=== PATIENT | male | born 1970 | race African-American/Black ===

== ENCOUNTER 2019-04-06 05:41 | Emergency (ER) | payer SELFPAY ==
[~2019-04-06] VITALS: Ht 177.8 cm; Wt 68.0 kg
[2019-04-06] VITALS (8 sets, daily range): BP systolic 112–132; BP diastolic 60–80
[2019-04-06] MEDS ORDERED: Haloperidol 5mg/ml Inj IM ONE (05:45)
--- NOTE | 2019-04-06 06:07 | Emergency Room Report ---
History of Present Illness General Chief Complaint: Alcohol Intoxication Source: Patient (Valentino Thorne MD) Present Illness HPI Patient is a 48 year-old male brought in by EMS after increased altered mental status. Patient reportedly had been shoplifting at a [employer]. Patient was noted to be behaving bizarrely. History is markedly limited by patient's mental status and poor historian. (Valentino Thorne MD) Allergies: Coded Allergies: UNABLE TO ASSESS (Unverified , 04/06/19) Patient History Past Medical History: see triage record Reviewed Nursing Documentation: PMH: Agreed; PSxH: Agreed (Valentino Thorne MD) Nursing Documentation-PMH Past Medical History: Deferred (Valentino Thorne MD) Review of Systems All Other Systems: negative except mentioned in HPI (Valentino Thorne MD) Physical Exam Vital Signs Date Time Temp Pulse Resp B/P (MAP) Pulse Ox O2 Delivery O2 Flow Rate FiO2 04/06/19 05:39 99.0 18 99 Room Air Sp02 EP Interpretation: reviewed, normal General Appearance: normal inspection, alert, Chronically Ill Head: normocephalic, atraumatic ENT: normal ENT inspection, hearing grossly normal, normal voice Neck: normal inspection, full range of motion, supple, no bony tend Respiratory: normal inspection, lungs clear, normal breath sounds, no respiratory distress, no retraction, no wheezing Cardiovascular #1: regular rate, rhythm, no edema Gastrointestinal: normal inspection, normal bowel sounds, non tender, soft, no guarding, no hernia Genitourinary: no CVA tenderness Musculoskeletal: normal inspection, back normal, normal range of motion Neurologic: normal inspection, alert, responsive, 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 Differential diagnosis include was not limited to substance abuse, psychosis, alcohol intoxication, meningitis among others. Because of complexity of patient's case laboratory tests were ordered. Patient's laboratory testing showed a urine drug screen positive for marijuana as well as amphetamine. Patient was given medications for initial sedation. He was noted to be somewhat somnolent subsequently. He was started on IV hydration. CPK was initially noted to be elevated. Patient was subsequently more calm. Patient was subsequently noted to have gradually improving mental status. Patient was endorsed to Dr. Millard pending repeat laboratory testing and further IV hydration. Labs Test 04/06/19 05:55 04/06/19 06:27 04/06/19 07:17 Urine Color Yellow Urine Appearance Clear Urine pH 5 (4.5-8.0) Urine Specific [place] 1.025 (1.005-1.035) Urine Protein 2+ (NEGATIVE) Urine Glucose (UA) Negative (NEGATIVE) Urine Ketones 2+ (NEGATIVE) Urine Blood Negative (NEGATIVE) Urine Nitrite Negative (NEGATIVE) Urine Bilirubin 1+ (NEGATIVE) Urine Ictotest Negative (NEGATIVE) Urine Urobilinogen 8 MG/DL (0.0-1.0) Urine Leukocyte Esterase 1+ (NEGATIVE) Urine RBC 0 /HPF (0 - 0) Urine WBC 2-4 /HPF (0 - 0) Urine Squamous Epithelial Cells Occasional /LPF Urine Bacteria Few /HPF (NONE) Urine Mucus Few /LPF (NONE/OCC) Sodium Level 135 MMOL/L (136-145) Potassium Level 4.1 MMOL/L (3.5-5.1) Chloride Level 101 MMOL/L (98-107) Carbon Dioxide Level 21 MMOL/L (21-32) Anion Gap 13 mmol/L (5-15) Blood Urea Nitrogen 16 mg/dL (7-18) Creatinine 0.9 MG/DL (0.55-1.30) Estimat Glomerular Filtration Rate > 60 mL/min (>60) Glucose Level 125 MG/DL (74-106) Calcium Level 8.9 MG/DL (8.5-10.1) Total Bilirubin 1.0 MG/DL (0.2-1.0) Aspartate Amino Transf (AST/SGOT) 121 U/L (15-37) Alanine Aminotransferase (ALT/SGPT) 167 U/L (12-78) Alkaline Phosphatase 69 U/L (46-116) Total Creatine Kinase 1639 U/L (26-308) Creatine Kinase MB 18.1 NG/ML (0.0-3.6) Creatine Kinase MB Relative Index 1.1 Troponin I 0.052 ng/mL (0.000-0.056) Total Protein 7.3 G/DL (6.4-8.2) Albumin 3.9 G/DL (3.4-5.0) Globulin 3.4 g/dL Albumin/Globulin Ratio 1.1 (1.0-2.7) Thyroid Stimulating Hormone (TSH) 0.425 uiU/mL (0.358-3.740) Salicylates Level 0.3 ug/mL (2.8-20) Urine Opiates Screen Negative (NEGATIVE) Acetaminophen Level < 2 MCG/ML (10-30) Urine Barbiturates Screen Negative (NEGATIVE) Phencyclidine (PCP) Screen Negative (NEGATIVE) Urine Amphetamines Screen Positive (NEGATIVE) Urine Benzodiazepines Screen Negative (NEGATIVE) Urine Cocaine Screen Negative (NEGATIVE) Urine Marijuana (THC) Screen Positive (NEGATIVE) Serum Alcohol < 3 mg/dL White Blood Count 7.1 K/UL (4.8-10.8) Red Blood Count 4.27 M/UL (4.70-6.10) Hemoglobin 11.9 G/DL (14.2-18.0) Hematocrit 35.0 % (42.0-52.0) Mean Corpuscular Volume 82 FL (80-99) Mean Corpuscular Hemoglobin 27.9 PG (27.0-31.0) Mean Corpuscular Hemoglobin Concent 34.1 G/DL (32.0-36.0) Red Cell Distribution Width 10.5 % (11.6-14.8) Platelet Count 262 K/UL (150-450) Mean Platelet Volume 5.0 FL (6.5-10.1) Neutrophils (%) (Auto) 64.5 % (45.0-75.0) Lymphocytes (%) (Auto) 21.7 % (20.0-45.0) Monocytes (%) (Auto) 10.8 % (1.0-10.0) Eosinophils (%) (Auto) 1.2 % (0.0-3.0) Basophils (%) (Auto) 1.8 % (0.0-2.0) Lactic Acid Level 0.90 mmol/L (0.4-2.0) (Valentino Thorne MD) ER Course Reevaluation at 7:11 PM, patient is sober, CK is downtrending, patient is tolerating p.o. Gait intact (Dillon Millard MD) Last Vital Signs Date Time Temp Pulse Resp B/P (MAP) Pulse Ox O2 Delivery O2 Flow Rate FiO2 04/06/19 05:39 99.0 18 99 Room Air Status: improved (Valentino Thorne MD) Disposition: HOME, SELF-CARE Condition: Stable Referrals: [facility] Patient Instructions: Stimulant Use Disorder-Amphetamines, Stimulant Use Disorder-Methamphetamines Additional Instructions: The patient was provided with discharge instructions, notified to follow-up with a primary care doctor and or specialist in the next 24-48 hours, and to return to the ED if they have worsening of their symptoms. Please note that this report is being documented using Qonf technology. This can lead to erroneous entry secondary to incorrect interpretation by the dictating instrument. Valentino Thorne MD Apr 06, 2019 06:07 Dillon Millard MD Apr 06, 2019 19:12
[2019-04-06] MEDS ORDERED: LORazepam Inj 2mg/ml 1ml ONE (06:09)
[2019-04-06] MEDS ORDERED: DiphenhydrAMINE 50mg/ml Inj ONE (06:09)
[2019-04-06] MEDS ORDERED: LORazepam Inj 2mg/ml 1ml IV ONE (06:15)
[2019-04-06] MEDS ORDERED: DiphenhydrAMINE 50mg/ml Inj IVP ONE (06:15)
[2019-04-06 06:16] LABS: APPEARANCE,URINE CLEAR; BILIRUBIN, URINE 1+ (NEGATIVE); GLUCOSE, URINE (UA) NEGATIVE (NEGATIVE); KETONES,URINE 2+ (NEGATIVE); LEUKOCYTE ESTERASE ,URINE 1+ (NEGATIVE); NITRITE,URINE NEGATIVE (NEGATIVE); PH,URINE 5 (4.5-8.0); PROTEIN,URINE 2+ (NEGATIVE); UROBILINOGEN,URINE 8 MG/DL (0.0-1.0)
--- NOTE | 2019-04-06 06:16 | NUR ---
ED Nurse Note: PT DOMINIC R68 FROM [facility] C/C ETOH. RESTLESS AND AGITATED. IV ACCESS ESTABLISHED. BLOOD AND URINE COLLECTED; SENT DOWN TO LAB
[2019-04-06 06:31] LABS: COLOR,URINE YELLOW
[2019-04-06 06:41] LABS: ANION GAP 13 mmol/L (5-15); BLOOD UREA NITROGEN 16 mg/dL (7-18); CALCIUM 8.9 MG/DL (8.5-10.1); CARBON DIOXIDE 21 MMOL/L (21-32); CHLORIDE 101 MMOL/L (98-107); CREATININE 0.9 MG/DL (0.55-1.30); POTASSIUM 4.1 MMOL/L (3.5-5.1); SODIUM 135 MMOL/L (136-145)
[2019-04-06 06:50] LABS: BASOPHILS % (AUTO) 1.8 % (0.0-2.0); EOSINOPHILS % (AUTO) 1.2 % (0.0-3.0); HEMOGLOBIN 11.9 G/DL (14.2-18.0); LYMPHOCYTES % (AUTO) 21.7 % (20.0-45.0); MEAN CORPUSCULAR VOLUME 82 FL (80-99); MONOCYTES % (AUTO) 10.8 % (1.0-10.0); NEUTROPHILS % (AUTO) 64.5 % (45.0-75.0); PLATELET COUNT 262 K/UL (150-450); RED BLOOD COUNT 4.27 M/UL (4.70-6.10); RED CELL DISTRIBUTION WIDTH 10.5 % (11.6-14.8); WHITE BLOOD COUNT 7.1 K/UL (4.8-10.8)
[2019-04-06 06:54] LABS: ALANINE AMINOTRANSFERASE 167 U/L (12-78); ALBUMIN 3.9 G/DL (3.4-5.0); ALBUMIN/GLOBULIN RATIO 1.1 (1.0-2.7); ALKALINE PHOSPHATASE 69 U/L (46-116); ASPARTATE AMINO TRANSFERASE 121 U/L (15-37); CKMB 18.1 NG/ML (0.0-3.6); CREATINE KINASE 1639 U/L (26-308)
--- NOTE | 2019-04-06 07:19 | NUR ---
ED Nurse Note: repeat lactic drawn; sent down to lab.
--- NOTE | 2019-04-06 07:21 | NUR ---
HAND-OFF: Report given to johnathan samayoa. patient sleeping with no acute distress. vss. respirations even and unlabored.
--- NOTE | 2019-04-06 07:25 | NUR ---
ED Nurse Note: reports received. pt found lying on bed supine with 2 IV access on each hand and wrist. RN reposition pt to semi-roberts with pillow. maintained airway. on electronic device monitor. respirations even and non-labored noted. breath sounds clear. no open wound noted. dry skin noted. pt changed to hospital gown. will wait until pt awake for neuro assessment.
--- NOTE | 2019-04-06 09:15 | NUR ---
ED Nurse Note: pt lying in bed with eye closed. on site monitor. will wait for pt to awake.
--- NOTE | 2019-04-06 12:05 | NUR ---
ED Nurse Note: pt lying in with eye closed. no facial grimacing or moaning noted.
--- NOTE | 2019-04-06 13:43 | NUR ---
ED Nurse Note: pt lying in bed with eye closed. no facial grimacing or moaning noted. on nurse monitoring.
--- NOTE | 2019-04-06 15:00 | NUR ---
ED Nurse Note: pt awake. able to provide name and to registeration personnel. pt appears to still sleepy. will wait for further order.
--- NOTE | 2019-04-06 17:00 | NUR ---
ED Nurse Note: pt lying in bed with eye closed. no facial grimacing or moaning noted.
[2019-04-06 17:28] LABS: CREATINE KINASE 1130 U/L (26-308)
--- NOTE | 2019-04-06 18:00 | NUR ---
ED Nurse Note: pt awake more. AAO x3.
--- NOTE | 2019-04-06 19:27 | NUR ---
Homeless Discharge: Patient is being discharged from medical care. Awake, alert and oriented x3. After care instructions, including referral to community resources were given. Patient verbalized understanding of After care instructions; at this time patient does not request medications, equipment or placement. Patient signed patient consent in the medical record for patient destination upon discharge. All medical devices such as IV and ID band were removed. Patient ambulated out with all personal belongings with steady gait.
== END 2019-04-06 19:28 | disposition home or self-care (01) ==
LOC: EDBD 05:41 → EMR 05:54 → EDBD 05:54 → EMR 19:28
DX: F15.10 Other stimulant abuse, uncomplicated (principal); F12.10 Cannabis abuse, uncomplicated; E86.0 Dehydration; R41.82 Altered mental status, unspecified
CPT/HCPCS: 36415; 80053; 80307; 81003; 82550; 82553; 83605; 84443; 84484; 85025; 96361; 96372; 96374; 96375; 99284; G0480; J1200; J1630; 80329